=== PATIENT | female | born 1960 | race Caucasian/White ===

== ENCOUNTER 2019-08-12 17:57 | Emergency (ER) | payer MEDICAID ==
[~2019-08-12] VITALS: Ht 165.1 cm; Wt 82.6 kg
[2019-08-12 18:00] VITALS: BP_SYST 149
--- NOTE | 2019-08-12 18:07 | NUR ---
Patient triaged and placed in waiting room. VSS and patient appears in no acute distress at this time. Accompanied by DAUGHTER, awaiting available bed, and MD notified of need for MSE. DAUGHTER STATES THAT SHE DOES NOT WANT TO WAIT LONG AND MIGHT LEAVE. EXPLAINED THAT THERE IS A WAIT AT THIS TIME AND SHE WILL BE CALLED TO BACK SOON.
--- NOTE | 2019-08-12 18:24 | NUR ---
PT LEFT WITHOUT BEING SEEN BY MD.
--- NOTE | 2019-08-12 18:24 | NUR ---
Per motel front desk clerk, pt LWBS.
== END 2019-08-12 18:24 | disposition left against medical advice (07) ==
LOC: SED 17:57
DX: R10.13 Epigastric pain (principal); Z53.21 Procedure and treatment not carried out due to patient leaving prior to being seen by health care provider